=== PATIENT | female | born 1980 | race Caucasian/White ===

== ENCOUNTER 2017-06-23 05:04 | Inpatient (IN) | payer BC, MEDICAID ==
[2017-06-23] MEDS ORDERED: LIDOCAINE 1% (PF) 10 MG/ML (30 ML SDV) SQ PRN (05:32)
[2017-06-23] MEDS ORDERED: CARBOPROST TROMETHAMINE 250 MCG/ML 1 ML AMP IM PRN (05:32)
[2017-06-23] MEDS ORDERED: OXYTOCIN 10 UNIT/ML 1 ML VIAL IM PRN (05:32)
[2017-06-23] MEDS ORDERED: METHYLERGONOVINE 0.2 MG/ML 1 ML AMP IM PRN (05:32)
[2017-06-23] MEDS ORDERED: TERBUTALINE 1 MG/ML VIAL SQ PRN (05:32)
[2017-06-23] MEDS ORDERED: AMPICILLIN 2,000 MG in SODIUM CHLORIDE 0.9% 100 ML IVPB STA (05:32)
[2017-06-23] MEDS ORDERED: LACTATED RINGERS 1,000 ML IV SCH (05:45)
[2017-06-23] MEDS ORDERED: OXYTOCIN 20 UNITS/1000 ML NS 1,000 ML IV SCH ×2 (05:45→07:15)
[2017-06-23 06:06] LABS: Basophils # (A) 0.1 k/uL (0-0.2); Basophils % (A) 1 %; Eosinophils # (A) 0.4 k/uL (0-0.7); Eosinophils % (A) 5 %; HCT 36.8 % (34.0-46.0); HGB 13.5 gm/dL (11.4-16.0); Hyperchromasia Slight; Lymphocytes % (A) 24 %; MCH 29.7 pg (25.0-35.0); MCHC 36.5 g/dL (31.0-37.0); MCV 81.4 fL (80.0-100.0); Mean Platelet Volume 8.7; Monocytes # (A) 0.4 k/uL (0-1.0); Monocytes % (A) 5 %; Neutrophils # (A) 5.4 k/uL (1.3-7.7); Neutrophils % (A) 63 %; Platelet Count 196 k/uL (150-450); Poikilocytosis Slight; RBC 4.52 m/uL (3.80-5.40); RDW 13.7 % (11.5-15.5); WBC 8.5 k/uL (3.8-10.6)
--- NOTE | 2017-06-23 06:30 | P.HPOB ---
History of Present Illness H&P Date: 06/23/17 Chief Complaint: Leaking of fluid and contractions. This patient is a pleasant 37-year-old 8 para 7 female estimated date of confinement 07/02/2017 estimated gestational age 38-5/7 weeks who presents to labor and delivery with complaints of leaking of fluid at proximally midnight last night. Patient presented to labor and delivery this morning. She is care is complicated by advanced for maternal age. Patient was referred to maternal- medicine for a left EIF, level III ultrasound and cardiac echo was normal. She did decline genetic testing. Patient's past obstetrical history is significant for previous section for twins followed by successful . She had multiple successful vaginal deliveries before her . Patient has requested repeat and she and I have discussed this in the office and here. She understands the benefits and risks. I do think she is a good candidate. She did have a positive group B strep culture. Review of Systems Gastrointestinal: Reports heartburn Genitourinary: Reports Past Medical History Past Medical History: No Reported History History of Any Multi-Drug Resistant Organisms: None Reported Past Surgical History: Appendectomy, Section Past Anesthesia/Blood Transfusion Reactions: No Reported Reaction Past Psychological History: Anxiety, Depression Smoking Status: Never smoker Past Alcohol Use History: None Reported Past Drug Use History: None Reported - Past Family History Mother Family Medical History: No Reported History Medications and Allergies Home Medications Medication Instructions Recorded Confirmed Type Pnv,Calcium 72/Iron/Folic Acid 1 tab PO DAILY 06/23/17 06/23/17 History [ Plus Tablet] Allergies Allergy/AdvReac Type Severity Reaction Status Date / Time No Known Allergies Allergy Verified 06/23/17 05:16 Exam - Vital Signs Vital signs: Vital Signs Temp Pulse Resp BP Pulse Ox 06/23/17 05:49 97.9 F 79 16 132/84 100 Intake and Output 06/22/17 06/22/17 06/23/17 14:59 22:59 06:59 Other: Weight 94.801 kg - OBG Physical Exam Abdomen: bowel sounds normal, no diffuse tenderness, no bruit present, no guarding noted, no hepatomegaly, no splenomegaly, no mass Vulva: both: normal Vagina: normal moisture, no discharge Cervix: no lesion, cyst noted, no discharge Uterus: enlarged (Fundal height is consistent with a term ) Results blood work shows she is O-, rubella immune, RPR is nonreactive, HIV is nonreactive, hepatitis B was negative, Glucola was abnormal with a normal three- hour gtt. Patient did receive RhoGAM on April 04. Group B strep was positive. ultrasounds including cardiac echo were normal. Result Diagrams: 06/23/17 05:50 Assessment and Plan Assessment: This is a pleasant 37-year-old 8 para 7 female 38-5/7 weeks' gestation with early active labor and spontaneous rupture membranes. Patient's amniotic fluid is thick meconium-stained. Patient's had a previous section for twins and successful previous and requests at this time. I did place a scalp electrode to better monitor heart tones. Patient understands that if there is any concern with heart tones we will proceed with repeat section. At this time she wishes to have a vaginal and understands the risks and benefits. Also treat her prophylactically with antibiotics for positive group B strep culture. (1) Third trimester Current Visit: Yes Status: Acute Code(s): Z34.93 - ENCNTR FOR SUPRVSN OF NORMAL PREG, UNSP, THIRD TRIMESTER SNOMED Code(s): 95130848 (2) Normal labor Current Visit: Yes Status: Acute Code(s): O80 - ENCOUNTER FOR FULL-TERM UNCOMPLICATED DELIVERY; Z37.9 - OUTCOME OF DELIVERY, UNSPECIFIED SNOMED Code(s ): 01802376 (3) Previous delivery affecting Current Visit: Yes Status: Acute Code(s): O34.219 - MATERNAL CARE FOR UNSP TYPE SCAR FROM PREVIOUS DEL SNOMED Code(s): 454864154 (4) Thick meconium stained amniotic fluid Current Visit: Yes Status: Acute Code(s): P96.83 - MECONIUM STAINING SNOMED Code(s): 264354033
[2017-06-23] MEDS ORDERED: LANOLIN CREAM 5 GM TUBE TOPICAL PRN (07:04)
[2017-06-23] MEDS ORDERED: ZOLPIDEM 5 MG TAB PO PRN (07:04)
[2017-06-23] MEDS ORDERED: Rhogam IMMUNE GLOBULIN 1,500 UNIT/1 ML IM ONE (07:04)
[2017-06-23] MEDS ORDERED: IBUPROFEN 600 MG TAB PO PRN (07:04)
[2017-06-23] MEDS ORDERED: diphenhydrAMINE 25 MG CAP PO PRN (07:04)
[2017-06-23] MEDS ORDERED: WITCH HAZEL 1 EACH MED..PAD TOPICAL PRN (07:04)
[2017-06-23] MEDS ORDERED: BISACODYL 10 MG SUPP RECTAL PRN (07:04)
[2017-06-23] MEDS ORDERED: diphenhydrAMINE 50 MG/ML 1 ML VIAL IVP PRN (07:04)
[2017-06-23] MEDS ORDERED: SIMETHICONE 80 MG CHEWABLE PO PRN (07:04)
[2017-06-23] MEDS ORDERED: ACETAMINOPHEN TAB 325 MG TAB PO PRN (07:04)
[2017-06-23] MEDS ORDERED: HYDROCORTISONE 2.5% RECTAL CREAM 30 GM TUBE RECTAL PRN (07:04)
[2017-06-23] MEDS ORDERED: BENZOCAINE/MENTHOL SPRAY 1 GM/SPRAY AEROSOL TOPICAL PRN (07:04)
--- NOTE | 2017-06-23 07:08 | P.PROBDLV ---
Vaginal Delivery Note - . Vaginal Delivery Note: Normal spontaneous vaginal delivery () of a viable male infant Apgars 8 and 9 delivery time is 0654 hours. Please see dictated H&P for intimate details of this patient's admission. Brief summary is a pleasant 37-year-old 8 para 7 female 38-5/7 weeks gestation who is admitted to labor and delivery with spontaneous rupture membranes earlier this evening and contractions. Patient is artificial rupture membranes at 4 cm for thick meconium-stained fluid. scalp electrode was placed at this time. Patient does have some variable decelerations but otherwise heart tones are reassuring. Patient quickly gets to complete and one push pushes the head to the perineum. Posterior perineum was supported she then pushes uncontrollably again and delivers rest of this ' s body. There was a loose nuchal cord which she delivered through. The has spontaneous respirations and good cry and grossly appears normal. Nurse playground official was present for delivery but no suction was indicated. Infant is in late on the mother's abdomen. She requests to late cord clamping and this is done. After the cord is nonpulsating for 60 seconds is doubly clamped cut appears to be trivascular. Cord blood is obtained for Rh status. With this done the placenta spontaneously delivered intact. The's May blood loss is 100 mL. There are no lacerations and no repair is indicated. and mother stable delivery room. There are no complications. All counts correct 3.
[2017-06-23] MEDS ORDERED: AMPICILLIN 1,000 MG in SODIUM CHLORIDE 0.9% 50 ML IVPB SCH (10:00)
[2017-06-23] MEDS: SENNOSIDES-DOCUSATE SODIUM 1 EACH TAB PO SCH ×2 (14:09→19:45)
--- NOTE | 2017-06-24 06:04 | P.PNOBGVD ---
Subjective - Subjective Patient reports: Reports appetite normal, Reports voiding normally, Reports pain well controlled, Reports ambulating normally : doing well Objective - Latest Vital Signs Latest vital signs: Vital Signs Temp Pulse Resp BP Pulse Ox 06/24/17 04:45 98.0 F 82 18 122/74 100 06/24/17 00:00 98.3 F 63 18 125/73 97 06/23/17 19:58 97.8 F 80 18 121/72 100 06/23/17 15:16 98.2 F 75 16 116/72 06/23/17 12:00 98.5 F 68 16 121/72 06/23/17 09:07 66 18 121/64 06/23/17 08:37 75 18 123/61 06/23/17 08:07 72 18 118/68 06/23/17 07:51 73 18 115/67 06/23/17 07:37 76 18 131/66 06/23/17 07:22 98.3 F 81 18 128/74 06/23/17 07:07 97.9 F 75 16 132/77 Intake and Output 06/23/17 06/23/17 06/24/17 14:59 22:59 06:59 Intake Total 1000 Balance 1000 Intake: IV 1000 Oxytocin 20 Units/1000 ml 1000 Ns 1,000 ml @ Per Protocol IV .Q0M [facility] Rx#: [id number] Other: # Voids 1 - Exam Lungs: bilateral: normal Chest: Normal S1, Normal S2 Extremities: Present: normal Abdomen: Present: normal appearance, soft Uterus: Present: normal, firm Assessment and Plan Assessment: day #1. Patient is resting without complaints. Vital signs are stable and she is afebrile. Uterus is firm nontender she's having normal lochia. Her baby needs to be observed for 48 hours due to a positive group B strep culture, therefore she is going to stay until tomorrow morning. Plan is to continue routine care. (1) Third trimester Current Visit: Yes Status: Acute Code(s): Z34.93 - ENCNTR FOR SUPRVSN OF NORMAL PREG, UNSP, THIRD TRIMESTER SNOMED Code(s): 84240319 (2) Normal labor Current Visit: Yes Status: Acute Code(s): O80 - ENCOUNTER FOR FULL-TERM UNCOMPLICATED DELIVERY; Z37.9 - OUTCOME OF DELIVERY, UNSPECIFIED SNOMED Code(s ): 08029331 (3) Previous delivery affecting Current Visit: Yes Status: Acute Code(s): O34.219 - MATERNAL CARE FOR UNSP TYPE SCAR FROM PREVIOUS DEL SNOMED Code(s): 823742868 (4) Thick meconium stained amniotic fluid Current Visit: Yes Status: Acute Code(s): P96.83 - MECONIUM STAINING SNOMED Code(s): 845963052
[2017-06-24] MEDS: SENNOSIDES-DOCUSATE SODIUM 1 EACH TAB PO SCH ×2 (07:48→19:42)
[2017-06-25 05:13] VITALS: TEMP 98.1
--- NOTE | 2017-06-25 06:23 | P.PNOBGVD ---
Subjective - Subjective Patient reports: Reports appetite normal, Reports voiding normally, Reports pain well controlled, Reports ambulating normally : doing well Objective - Latest Vital Signs Latest vital signs: Vital Signs Temp Pulse Resp BP BP Pulse Ox 06/25/17 00:00 98.1 F 80 18 121/77 100 06/24/17 15:53 97.4 F L 73 17 111/67 96 06/24/17 12:00 98.3 F 77 18 109/70 06/24/17 07:51 97.5 F L 77 16 127/70 97 Intake and Output 06/24/17 06/24/17 06/25/17 14:59 22:59 06:59 Intake Total 1200 Balance 1200 Intake: Oral 1200 Other: Voiding Method Toilet Toilet # Voids 1 - Exam Lungs: bilateral: normal Chest: Normal S1, Normal S2 Extremities: Present: normal Abdomen: Present: normal appearance, soft Uterus: Present: normal, firm Assessment and Plan Assessment: Post arm day #2. Patient is resting without complaints. Vital signs are stable and she is afebrile. Uterus is firm nontender she's having normal lochia. I impression this is a normal course. Plan is to continue routine care discharge home today. (1) Third trimester Current Visit: Yes Status: Acute Code(s): Z34.93 - ENCNTR FOR SUPRVSN OF NORMAL PREG, UNSP, THIRD TRIMESTER SNOMED Code(s): 60832898 (2) Normal labor Current Visit: Yes Status: Acute Code(s): O80 - ENCOUNTER FOR FULL-TERM UNCOMPLICATED DELIVERY; Z37.9 - OUTCOME OF DELIVERY, UNSPECIFIED SNOMED Code(s ): 35351946 (3) Previous delivery affecting Current Visit: Yes Status: Acute Code(s): O34.219 - MATERNAL CARE FOR UNSP TYPE SCAR FROM PREVIOUS DEL SNOMED Code(s): 741033330 (4) Thick meconium stained amniotic fluid Current Visit: Yes Status: Acute Code(s): P96.83 - MECONIUM STAINING SNOMED Code(s): 299041415
--- NOTE | 2017-06-25 06:30 | P.DS ---
Providers Date of admission: 06/23/17 05:21 Expected date of discharge: 06/25/17 Attending physician: Rafael Nieto Primary care physician: Stated None - Discharge Diagnosis(es) (1) Third trimester Current Visit: Yes Status: Acute (2) Normal labor Current Visit: Yes Status: Acute (3) Previous delivery affecting Current Visit: Yes Status: Acute (4) Thick meconium stained amniotic fluid Current Visit: Yes Status: Acute Hospital Course: Please see dictated H&P on this patient's admission. Brief summary is a pleasant 37-year-old 8 para 7 female 38-5/7 weeks gestation admitted to labor and delivery in active labor. Patient previous section and quickly goes on to have a vaginal delivery of a viable male (). her 2 patient's felt be stable for discharge home follow up with me in 6 weeks. Procedures: Vaginal after section. Patient Condition at Discharge: Good Plan - Discharge Summary New Discharge Prescriptions: No Action Pnv,Calcium 72/Iron/Folic Acid [ Plus Tablet] 1 tab PO DAILY Discharge Medication List Pnv,Calcium 72/Iron/Folic Acid [ Plus Tablet] 1 tab PO DAILY 06/23/17 [ History] Follow up Appointment(s)/Referral(s): Rafael Nieto MD [STAFF PHYSICIAN] - 6 Weeks Patient Instructions/Handouts: Vaginal Delivery (DC) Activity/Diet/Wound Care/Special Instructions: No intercourse or anything per vagina for 6 weeks. Please call if any fever, chills, excessive vaginal bleeding, and/or abdominal pain. Discharge Disposition: HOME SELF-CARE
[2017-06-25 08:57] VITALS: BP 134/77; PULSE 103; RESP 16
[2017-06-25] MEDS: SENNOSIDES-DOCUSATE SODIUM 1 EACH TAB PO SCH (11:37)
== END 2017-06-25 11:45 | disposition home or self-care (01) | DRG 775 ==
LOC: FBPOP 05:04 → 4FBP 05:21
PROVIDERS: ADMIT Obstetrics & Gynecology; ATTEND Obstetrics & Gynecology
PROC: 10E0XZZ Delivery of Products of Conception, External Approach (ICD-10-PCS; principal; 2017-06-23)
PROC: 10907ZC Drainage of Amniotic Fluid, Therapeutic from Products of Conception, Via Natural or Artificial Opening (ICD-10-PCS; 2017-06-23)
DX: O34.219 Maternal care for unspecified type scar from previous cesarean delivery (principal); O99.344 Other mental disorders complicating childbirth; F32.9 Major depressive disorder, single episode, unspecified; Z37.0 Single live birth; Z3A.38 38 weeks gestation of pregnancy; F41.9 Anxiety disorder, unspecified; O69.81X0 Labor and delivery complicated by cord around neck, without compression, not applicable or unspecified; O76 Abnormality in fetal heart rate and rhythm complicating labor and delivery; O77.0 Labor and delivery complicated by meconium in amniotic fluid
CPT/HCPCS: 59025; 84112; 85025; 88307; 99213

== ENCOUNTER 2024-09-03 16:21 | Emergency (ER) | payer BC, MEDICAID ==
[2024-09-03 16:34] VITALS: BP 124/79; PULSE 79; RESP 20; TEMP 98.7
--- NOTE | 2024-09-03 17:36 | ED ---
General Adult HPI - General Chief complaint: Extremity Injury, Upper Stated complaint: Right hand injury Time Seen by Provider: 09/03/24 16:33 Source: patient Mode of arrival: ambulatory Limitations: no limitations - History of Present Illness Initial comments: 44-year-old female sent by urgent care for displaced fifth metacarpal fracture. Patient states that she was angry and punched a wall when she sustained the fracture. She is seen at urgent care who applied a splint and told her that she need to be seen in the ER for reduction. No numbness or tingling. She does have a deformity over the fifth metacarpal. - Related Data Home Medications Medication Instructions Recorded Confirmed Pnv,Calcium 72/Iron/Folic Acid 1 tab PO DAILY 06/23/17 06/23/17 [ Plus Tablet] Previous Rx's Medication Instructions Recorded Acetaminophen-Codeine 300-30mg 1 tab PO Q6H PRN 3 Days #12 tablet 09/03/24 [Tylenol w/codeine #3] Allergies Allergy/AdvReac Type Severity Reaction Status Date / Time No Known Allergies Allergy Verified 06/23/17 05:16 Review of Systems ROS Statement: Those systems with pertinent positive or pertinent negative responses have been documented in the HPI. ROS Other: All systems not noted in ROS Statement are negative. Past Medical History Past Medical History: No Reported History History of Any Multi-Drug Resistant Organisms: None Reported Past Surgical History: Appendectomy, Section Past Anesthesia/Blood Transfusion Reactions: No Reported Reaction Past Psychological History: Anxiety, Depression Past Alcohol Use History: None Reported Past Drug Use History: None Reported - Past Family History Mother Family Medical History: No Reported History General Exam Limitations: no limitations General appearance: alert, in no apparent distress Head exam: Present: atraumatic, normocephalic, normal inspection Eye exam: Present: normal appearance, EOMI Neck exam: Present: normal inspection. Absent: meningismus Respiratory exam: Absent: respiratory distress Cardiovascular Exam: Present: regular rate Right Hand Wrist exam: Present: tenderness, swelling, deformity. Absent: full ROM Neurological exam: Present: alert, oriented X3 Psychiatric exam: Present: normal affect, normal mood Skin exam: Present: warm, dry, normal color Course Vital Signs 09/03/24 16:31 Temperature 98.7 F Pulse Rate 79 Respiratory 20 Rate Blood Pressure 124/79 O2 Sat by Pulse 99 Oximetry Procedures - Orthopedic Splinting/Casting Injury #1 Side: right Upper Extremity Injury Location: hand Upper Extremity Immobilizer: ulnar gutter Medical Decision Making - Medical Decision Making Was pt. sent in by a medical professional or institution ([facility], [employer], urgent care, hospital, or longterm...) When possible be specific @ -Urgent care Did you speak to anyone other than the patient for history (EMS, parent, family, police, friend...)? What history was obtained from this source @ -No Did you review nursing and triage notes (agree or disagree)? Why? @ -I reviewed and agree with nursing and triage notes Were old charts reviewed (outside hosp., previous admission, EMS record, old EKG, old radiological studies, urgent care reports/EKG's, longterm records)? Report findings @ -I reviewed the patient's images from urgent care revealing displaced fifth metacarpal fracture Differential Diagnosis (chest pain, altered mental status, abdominal pain women, abdominal pain men, vaginal bleeding, weakness, fever, dyspnea, syncope, headache, dizziness, GI bleed, back pain, seizure, CVA, palpatations, mental health, musculoskeletal)? @ -Differential Musculoskeletal Muscular strain, contusion, ligament sprain, fracture, arthritis, septic arthritis, bursitis, cellulitis, muscle spasm, nerve compression, DVT, arterial occlusion, herpes zoster, electrolyte abnormality, tumor.... This is not meant to be in all inclusive list EKG interpreted by me (3pts min.). @ -As above X-rays interpreted by me (1pt min.). @ -None done CT interpreted by me (1pt min.). @ -None done U/S interpreted by me (1pt. min.). @ -None done What testing was considered but not performed or refused? (CT, X-rays, U/S, labs)? Why? @ -None What meds were considered but not given or refused? Why? @ -None Did you discuss the management of the patient with other professionals (professionals i.e. [facility], [employer]MS BUILDER, lab, RT, psych nurse, social services assistant, vegetable tier, teacher, workers' compensation hearings officer, counseling case manager)? Give summary @ -No Was smoking cessation discussed for >3mins.? @ -No Was critical care preformed (if so, how long)? @ -No Were there social determinants of health that impacted care today? How? (Homelessness, low income, unemployed, alcoholism, drug addiction, transportation, low edu. Level, literacy, decrease access to med. care, group home, rehab)? @ -No Was there de-escalation of care discussed even if they declined (Discuss DNR or withdrawal of care, Hospice)? DNR status @ -No What co-morbidities impacted this encounter? (DM, HTN, Smoking, COPD, CAD, Cance r, CVA, ARF, Chemo, Hep., AIDS, mental health diagnosis, sleep apnea, morbid obesity)? @ -None Was patient admitted / discharged? Hospital course, mention meds given and route, prescriptions, significant lab abnormalities, going to OR and other pertinent info. @ -44-year-old female presenting with chief complaint of fifth metacarpal fracture. Patient sent by urgent care because the fracture was displaced. Reviewed the patient's images from urgent care, there is some mild displacement. He used direct pressure to attempt to reduce the fracture and reapplied the splint. Patient will need to follow-up with orthopedics, she has [facility] for her children and will be following up with them. Follow-up with PCP. Report back to ER with any new or worsening sympto ms. Discussed return parameters and answered all questions. Patient conveyed verbal understanding and agreed to the plan. I discussed this case in detail with my attending Dr. Li Undiagnosed new problem with uncertain prognosis? @ -No Drug Therapy requiring intensive monitoring for toxicity (Heparin, Nitro, Insulin, Cardizem)? @ -No Were any procedures done? @ -Splint applied Diagnosis/symptom? @ -Fifth metacarpal fracture Acute, or Chronic, or Acute on Chronic? @ -Acute Uncomplicated (without systemic symptoms) or Complicated (systemic symptoms)? @ -Uncomplicated Side effects of treatment? @ -No Exacerbation, Progression, or Severe Exacerbation? @ -No Poses a threat to life or bodily function? How? (Chest pain, [place], [place], pneumonia, PE, COPD, DKA, ARF, appy, cholecystitis, CVA, Diverticulitis, Homicidal, Suicidal, threat to staff... and all critical care pts) @ -Unlikely Disposition Clinical Impression: Fracture of fifth metacarpal bone Disposition: HOME SELF-CARE Condition: Good Instructions (If sedation given, give patient instructions): Hand Fracture (ED) Additional Instructions: Follow-up with orthopedics. Report back to ER with any new or worsening symptoms. Take Motrin and Tylenol as needed for pain control. Prescriptions: Acetaminophen-Codeine 300-30mg [Tylenol w/codeine #3] 1 tab PO Q6H PRN 3 Days #12 tablet PRN Reason: Pain Is patient prescribed a controlled substance at d/c from ED?: Yes When asked, does pt state using other controlled substances?: No If prescribed controlled substance>3 days was MAPS reviewed?: Prescribed <3 Days If opioid is for acute pain is fill amount 7 days or less?: Yes Referrals: None,Stated [Primary Care Provider] - 1-2 days Bibi Falcon [Doctor of Osteopathic Medicine] - 1-2 days Time of Disposition: 17:35
[2024-09-03] MEDS: ACET/COD 300 MG/30 MG STARTER PACK 6 TAB BTL PO STA (18:35)
== END 2024-09-03 18:37 | disposition home or self-care (01) ==
LOC: EC 16:21
DX: S62.306A Unspecified fracture of fifth metacarpal bone, right hand, initial encounter for closed fracture (principal); W22.01XA Walked into wall, initial encounter
CPT/HCPCS: 29125; 99283